=== PATIENT | female | born 1950 | race Caucasian/White ===

== ENCOUNTER 2018-05-21 09:50 | Inpatient (IN) | payer OTHER ==
[~2018-05-21] VITALS: Ht 162.6 cm; Wt 52.2 kg
--- NOTE | 2018-05-21 09:51 | NUR ---
PT BIBA BLS TO ER BED 11
[2018-05-21 09:54] VITALS: BP 132/88
--- NOTE | 2018-05-21 09:55 | NUR ---
67 Y FEMALE BROUGHT IN BY EMS FROM PRIVATE HOME C/O SOB WITH SUPRACLAVICULAR AND INTRACOSTAL RETRACTIONS X 3 DAYS. FATIGUE WITH MINIMAL EXCERTION 91% ROOM AIR. PT STARTED ON 2 L NC. CURRENTLY AT 98%. LUNGS CLEAR BILATERALLY. SWELLING IN BILATERAL LEGS. PALPABLE PEDAL PULSES BILATERL. VSS AT THIS TIME. AA0X4. BED IS DOWN, LOCKED, BED RAIL X 1, ERMD NOTIFIED. HX--BLADDER CA, NEPHROSTOMY TUBE TO COLLECTING BAG RIGHT, APPENDIX REMOVED, R BREAST CYST RX---IBUPROFEN, NORCO, NORVASC
[2018-05-21] MEDS ORDERED: IBUP-2213 PO (10:03)
[2018-05-21] MEDS ORDERED: HYDR-5123 PO (10:03)
[2018-05-21] MEDS ORDERED: AMLO5TAB1 PO (10:03)
--- NOTE | 2018-05-21 10:21 | NUR ---
XRAY AT BEDSIDE
[2018-05-21 10:56] LABS: BASOPHILS # (AUTO) 0.1 K/uL (0.00-0.22); EOSINOPHILS # (AUTO) 0.2 K/uL (0-0.4); EOSINOPHILS % (AUTO) 2.3 % (0.0-4.0); HEMATOCRIT 33.3 % (36-48); HEMOGLOBIN 11.4 g/dL (12.0-16.0); LYMPHOCYTES # (AUTO) 0.5 K/uL (2.5-16.5); LYMPHOCYTES % (AUTO) 5.7 % (20.5-51.1); MEAN CORPUSCULAR HEMOGLOBIN 31 pg (27-31); MEAN CORPUSCULAR HGB CONC 34 g/dL (33-37); MONOCYTES # (AUTO) 0.8 K/uL (0.8-1.0); MONOCYTES % (AUTO) 8.7 % (1.7-9.3); NEUTROPHILS # (AUTO) 7.5 K/uL (1.8-7.7); NEUTROPHILS % (AUTO) 82.3 % (42.2-75.2); PLATELET COUNT (AUTO) 351 K/uL (140-450); RED BLOOD CELL COUNT(AUTO) 3.66 MIL/uL (4.20-5.40); WHITE BLOOD COUNT (AUTO) 9.1 K/uL (4.8-10.8)
--- NOTE | 2018-05-21 10:58 | NUR ---
DR NEGRETE AT BEDSIDE
[2018-05-21 11:06] LABS: ANION GAP 18.7 (8-16); CARBON DIOXIDE 18.4 mmol/L (21-32); CREATININE 2.7 mg/dL (0.6-1.3); POTASSIUM 4.1 mmol/L (3.5-5.1)
[2018-05-21 11:13] LABS: ALBUMIN 2.3 g/dL (3.4-5.0); TOTAL BILIRUBIN 0.4 mg/dL (0.0-1.0)
[2018-05-21] MEDS ORDERED: PIPERACILLIN/TAZOBACTAM 3.375 GM in DEXTROSE 5% 50 ML IV ONE (11:15)
[2018-05-21] MEDS ORDERED: PIPERACILLIN/TAZOBACTAM 3.375 GM VIAL IV ONE (11:45)
--- NOTE | 2018-05-21 12:00 | NUR ---
VSS AT THIS TIME. PT IS AA0X4
[2018-05-21 12:19] LABS: PROTHROMBIN TIME 11.3 secs (10.8-13.4)
[2018-05-21] MEDS ORDERED: HYDROcodone/APAP 7.5/325 MG 1 TAB PO ONE (12:20)
[2018-05-21] MEDS: NACL 0.9% 1,000 ML IV SCH ×2 (12:27→15:31)
[2018-05-21] MEDS ORDERED: ACETAMINOPHEN 325 MG TAB PO PRN (12:30)
[2018-05-21] MEDS ORDERED: MORPHINE SULFATE 2 MG/ML SYR IVP PRN (12:30)
[2018-05-21] MEDS ORDERED: HYDROcodone/APAP 7.5/325 MG 1 TAB PO PRN (12:30)
[2018-05-21] MEDS ORDERED: DOCUSATE SODIUM 100 MG GELCAP PO PRN (12:30)
[2018-05-21] MEDS ORDERED: MEDICATION REC. PHARMACY CONS. 1 EA MISC MC PRN (12:30)
[2018-05-21] MEDS ORDERED: ENOXAPARIN 60 MG/0.6 ML SYR SUBQ ONE (12:40)
[2018-05-21 13:05] LABS: APPEARANCE,URINE CLEAR (CLEAR); BILIRUBIN,URINE NEGATIVE (NEGATIVE); BLOOD, URINE TRACE-I (NEGATIVE); COLOR,URINE YELLOW (YELLOW); LEUKOCYTE ESTERASE ,URINE 1+ (NEGATIVE); NITRITE, URINE POSITIVE (NEGATIVE); UGLUCOSE NEGATIVE (NEGATIVE)
[2018-05-21] MEDS ORDERED: ALBUTEROL SULFATE/IPRATROPIU 3 ML SOL IH PRN (13:05)
[2018-05-21] MEDS ORDERED: ALBUTEROL 0.083% 2.5 MG/3 ML NEBU INH PRN ×2 (13:05)
--- NOTE | 2018-05-21 13:10 | NUR ---
Patient will be admitted to care of [facility]. Admited to TELE. Will go to room 127B. Belongings list completed. Report to CHANDNI RASHID.
[2018-05-21 13:15] VITALS: BP 119/71
--- NOTE | 2018-05-21 13:15 | NUR ---
RECEIVED REPORT FROM EMERGENCY ROOM NURSE. PT IN STABLE CONDITION. RESPIRATIONS EVEN AND UNLABORED. IV INTACT AND PATENT. BED IN LOW POSITION. CALL LIGHT AT BEDSIDE. WILL CONTINUE TO MONITOR.
[2018-05-21] MEDS ORDERED: SODIUM PHOSPHATE 118 ML ENEM RC SCH (15:00)
[2018-05-21] MEDS ORDERED: LACTOBACILLUS RHAMNOSUS GG 1 EACH CAP PO SCH (15:00)
--- NOTE | 2018-05-21 15:09 | NUR ---
WOUND CARE EVALUATION NOTE: REASON FOR EVALUATION: SACRALCOCCYX PRESSURE ULCER WOUND SKIN ASSESSMENT DONE WITH PRIMARY RN ON THIS 67 Y/O FEMALE PT ADMITTED FROM HOME TO [facility] WITH INITIAL DX OF SOB X 4 DAYS. PT ADMITTED WITH UN-STAGEABLE PRESSURE ULCERS. PAST MEDICAL HX INCLUDES BLADDER CA AND COPD. ALL ABOVE INFORMATION OBTAINED FROM ADMISSION H&P. AND PT. PT. IS AAX4. NEPHROSTOMY TUBE IN PLACE FUNCTION WITH DARRELL COLOR URINE OUTPUT OBSERVED IN THE TUBING. SKIN IS WARM AND DRY, BLE NO HAIR GROWTH, NO EDEMA. BILATERAL DORSAL PEDAL PULSES PRESENT AND NORMAL. PLAN OF CARE DISCUSSED WITH PRIMARY RN. INTEGUMENTARY: -CONTACT DERMATITIS TO RIGHT GROIN TO LABIA MAJORA AREA, REDNESS, RASHES WITH DRY CRACKED SKIN, C/O ITCHINESS, NO ODOR, NO BLISTERS -MULTIPLE DRY SCABS TO UPPER BACK AREA, DRY WITH NO ODOR, SKIN INTACT. -PRESSURE ULCER UN-STAGEABLE TO SACRALCOCCYX 3X2CM WITH OVAL SHAPE, WOUND BED IS 100 % SOFT LIGHT BROWN SLOUGH, DRY WITH NO ODOR, ERIKA-WOUND SKIN DENUDED AND SURROUNDING REDNESS INDICATED FURTHER DAMAGE. RECOMMENDATIONS: -APPLY HYDRAGUARD TO UPPER BACK BID AND PRN IF SOILING -CLEANSE SACRALCOCCYX WITH NS. PAT DRY, APPLY SOAKED BETADINE SOLUTION 2X2 TO SACRALCOCCYX AND Z GUARD TO ERIKA WOUND AND COVER WITH ISLAND DRESSING QD AND PRN IF SOILING -CLEANSE RIGHT GROIN TO LABIA MAJORA AREA WITH MILD SOAP AND WATER, PAT DRY, APPLY NYSTATIN CREAM BIDWC AND PRN IF SOLING. -OFFLOAD BILATERAL HEELS BY PLACING PILLOWS UNDER CALVES UNLESS OTHERWISE CONTRAINDICATED -PRESSURE REDISTRIBUTION SURFACE THERAPY -TURN AND REPOSITION Q2H, OFFLOAD SACRALCOCCYX BY TURNING RIGHT AND LEFT -CONTINUE TO FOLLOW RD RECOMMENDATIONS ALL ABOVE RECOMMENDATIONS DISCUSSED WITH PRIMARY RN WILL FOLLOW UP PT Q7-10 DAYS. PLEASE CONTACT WOUND CARE NURSE FOR ANY QUESTION AND CHANGE OF WOUND CONDITION.
--- NOTE | 2018-05-21 15:56 | NUR ---
RETRIEVED SPRITE AND PILLOW PER PT REQUEST. PT IN STABLE CONDITION. BED IN LOW POSITION. BED ALARM ON. CALL LIGHT AT BEDSIDE. WILL CONTINUE TO MONITOR.
[2018-05-21 16:21] LABS: AMYLASE 130 U/L (25-115)
[2018-05-21 16:34] LABS: LIPASE 1992 U/L (73-393)
[2018-05-21] MEDS: HYDROcodone/APAP 7.5/325 MG 1 TAB PO PRN ×2 (18:01→23:48)
--- NOTE | 2018-05-21 18:04 | NUR ---
* ST NOTE * Pt seen at bedside. Pt alert, cooperative and engaged throughout session, reporting no c/o pain at this time. Pt vomiting/spitting up bile/green, mucous like secretions intermittently throughout session, w/nsg aware. Bedside dysphagia and oral mechanism exams completed. See evaluation report for further details. Pt tolerating 2/2 alternating PO trials of regular solid saltine crackers as well as 4/4 alternating PO trials of thin liquid Sprite via the can/cup, all w/o s/s of aspiration or choking. Pt also reporting she does not have difficulty masticating or swallowing at this time. D/t pt's frequent episodes of spitting up/vomiting, pt refusing any further therapeutic feeding trials at this time as well as refusing regular solid food. Pt reporting at home, she used to eat pudding, yogurt, apple sauce, scrambled eggs, etc. It is thus recommended pt's PO diet consistency be modified to mechanical soft-ground textures w/thin liquids for all meals, w/aspiration precautions in place. Pt and caregiver/Nsg Sapna education completed re: aspiration precautions and safe swallow compensatory strategies pt and caregivers/nsg could utilize to aid pt w/swallow function, w/pt and nsg agreeable. No further ST follow up recommended at this time. Pt and caregiver/Nsg Sapna education completed re: results of evaluation; benefits of abiding by aspiration precautions and recommended PO diet consistency; and prognosis for improvement; with pt and caregiver/Nsg Sapna verbalizing understanding and agreement w/clinician's recommendations. Recommend: - PO DIET CONSISTENCY OF MECHANICAL SOFT-GROUND TEXTURES W/THIN LIQUIDS for all meals - WHOLE PILL PO MEDICATION ADMINISTRATION OR CRUSHED IN PUREE OR GROUND TEXTURES - MAINTAIN ASPIRATION PRECAUTIONS DURING PT'S PO INTAKE - Pt requires cueing/setup assistance for self-feeding - CUE/REMIND/ASSIST PT PRIOR TO PO INTAKE TO SIT UP AT 80-90 DEGREE ANGLE DURING PO INTAKE; EAT/DRINK SLOWLY; ALTERNATE BTWN SOLIDS & LIQUIDS; AND TO TAKE SMALL BITES/SIPS - Pt may benefit from an EGD to r/o GERD, esophageal dysphagia, etc. - Pt's PO diet consistency may be upgraded to regular solids w/thin liquids as tolerated No further ST follow up recommended to further address swallow function. NOMS Level 3 Time In/Out: 17:15 - 17:45
--- NOTE | 2018-05-21 19:30 | NUR ---
RECEIVED BEDSIDE REPORT FROM DAY SHIFT NURSE CHANDNI RN, PT STABLE, NO DISTRESS NOTED, IV TO L HAND 24G, PATENT INTACT, INFUSING NS @ 126ML/HR, INFUSING WELL, PT ON 2LPM O2 VIA NC, NO SOB NOTED, NEPHROSTOMY TUBE INTACT DRAINING YELLOW URINE, WOUND DRESSING INTACT TO THE SACRAL AREA, INITIAL ASSESSMENT DONE, CALL LIGHT WITHIN REACH, WILL CONTINUE TO MONITOR.
--- NOTE | 2018-05-21 19:51 | NUR ---
GAVE REPORT TO ELEMENTARY ASSISTANT TEACHER NURSE FOR CONTINUITY OF CARE. PT IN STABLE CONDITION.
[2018-05-21] MEDS: BUDESONIDE 0.5 MG/2 ML NEBU INH SCH (19:55)
[2018-05-21 20:00] VITALS: BP 114/64
[2018-05-21] MEDS: PIPER/TAZO 2.25GM/D5W PREMIX 50 ML IV SCH (20:32)
[2018-05-21] MEDS: NYSTATIN/TRIAMCINOLONE CRM 15 GM TUBE TP SCH (20:33)
--- NOTE | 2018-05-21 20:33 | NUR ---
DUE MEDICATION ADMINISTERED, PT TOLERATED WELL, NO DISTRESS NOTED, CALL LIGHT WITHIN REACH, WILL CONTINUE TO MONITOR.
--- NOTE | 2018-05-21 23:48 | NUR ---
PT C/O PAIN, PAIN MEDICATION PER MD ORDER ADMINISTERED, PT TOLERATED WELL, NO DISTRESS NOTED, CALL LIGHT WITHIN REACH, WILL CONTINUE TO MONITOR.
[2018-05-21] MEDS: ONDANSETRON 4 MG/2 ML VIAL IM/IVP PRN (23:54)
--- NOTE | 2018-05-21 23:54 | NUR ---
PT NAUSEATED, VOMITED 120ML, NAUSEA MEDICATION ADMINISTERED, PT TOLERATED WELL, NO DISTRESS NOTED, CALL LIGHT WITHIN REACH, WILL CONTINUE TO MONITOR.
[2018-05-22] VITALS (7 sets, daily range): BP systolic 96–119; BP diastolic 60–76
[2018-05-22] MEDS: NACL 0.9% 1,000 ML IV SCH (00:02)
[2018-05-22] MEDS: Z-GUARD PASTE TP SCH ×2 (00:28→13:00)
[2018-05-22] MEDS: HYDRAGUARD CREAM TP SCH ×2 (00:28→13:27)
--- NOTE | 2018-05-22 03:36 | NUR ---
CHECKED ON PT, PT SLEEPING, NO DISTRESS NOTED, CALL LIGHT WITHIN REACH, WILL CONTINUE TO MONITOR.
[2018-05-22] MEDS: PIPER/TAZO 2.25GM/D5W PREMIX 50 ML IV SCH ×3 (05:03→21:30)
[2018-05-22] MEDS: HYDROcodone/APAP 7.5/325 MG 1 TAB PO PRN ×3 (05:51→20:55)
--- NOTE | 2018-05-22 05:51 | NUR ---
PT C/O PAIN, PAIN MEDICATION ADMINISTERED, PT TOLERATED WELL, NO DISTRESS NOTED, CALL LIGHT WITHIN REACH, WILL CONTINUE TO MONITOR.
--- NOTE | 2018-05-22 07:10 | NUR ---
IV TO L HAND 24G INFILTRATED, NEW IV INSERTED TO L FA 24G, PT TOLERATED WELL, NO DISTRESS NOTED, CALL LIGHT WITHIN REACH, WILL CONTINUE TO MONITOR.
--- NOTE | 2018-05-22 07:22 | NUR ---
PT LEFT UNIT FOR NEPHROSTOMY TUBE REPLACEMENT, PT IN STABLE CONDITION.
[2018-05-22] MEDS: BUDESONIDE 0.5 MG/2 ML NEBU INH SCH ×3 (07:30→19:44)
--- NOTE | 2018-05-22 07:35 | NUR ---
ENDORSED PT TO DAY SHIFT NURSE, NO DISTRESS NOTED, CALL LIGHT WITHIN REACH.
[2018-05-22 07:42] LABS: ANION GAP 17.6 (8-16); CARBON DIOXIDE 18.7 mmol/L (21-32); CREATININE 2.5 mg/dL (0.6-1.3); POTASSIUM 4.3 mmol/L (3.5-5.1)
[2018-05-22] MEDS ORDERED: LIDOCAINE/EPI MPF 1%1:200000 30 ML VIAL INJ ONE (07:58)
[2018-05-22] MEDS ORDERED: BUPIVACAINE-MPF 0.25% 30 ML VIAL INJ ONE (07:58)
[2018-05-22 08:02] LABS: MAGNESIUM 1.9 mg/dL (1.8-2.4); PHOSPHORUS 3.3 mg/dL (2.5-4.9)
[2018-05-22] MEDS ORDERED: fentaNYL 0.05 MG/ML VIAL ONE (08:04)
[2018-05-22] MEDS ORDERED: MIDAZOLAM 2 MG/2 ML VIAL ONE (08:04)
[2018-05-22 08:42] LABS: BASOPHILS # (AUTO) 0.1 K/uL (0.00-0.22); BASOPHILS % (AUTO) 1.3 % (0.0-2.0); EOSINOPHILS # (AUTO) 0.3 K/uL (0-0.4); EOSINOPHILS % (AUTO) 3.8 % (0.0-4.0); HEMATOCRIT 27.1 % (36-48); HEMOGLOBIN 9.4 g/dL (12.0-16.0); LYMPHOCYTES # (AUTO) 0.4 K/uL (2.5-16.5); LYMPHOCYTES % (AUTO) 6.3 % (20.5-51.1); MEAN CORPUSCULAR HEMOGLOBIN 31 pg (27-31); MEAN CORPUSCULAR HGB CONC 35 g/dL (33-37); MEAN CORPUSCULAR VOLUME 90.8 fL (80-94); MONOCYTES # (AUTO) 0.6 K/uL (0.8-1.0); MONOCYTES % (AUTO) 9.3 % (1.7-9.3); NEUTROPHILS # (AUTO) 5.4 K/uL (1.8-7.7); NEUTROPHILS % (AUTO) 79.3 % (42.2-75.2); PLATELET COUNT (AUTO) 256 K/uL (140-450); RED BLOOD CELL COUNT(AUTO) 2.98 MIL/uL (4.20-5.40); RED CELL DISTRIBUTION WIDTH 16.7 % (11.6-13.7); WHITE BLOOD COUNT (AUTO) 6.8 K/uL (4.8-10.8)
[2018-05-22] MEDS ORDERED: LACTOBACILLUS RHAMNOSUS GG 1 EACH CAP PO SCH (09:00)
[2018-05-22] MEDS ORDERED: NICOTINE TRANSD SYS 14 MG/24 HR PATCH TD SCH (09:00)
[2018-05-22] MEDS ORDERED: amLODIPine 5 MG TAB PO SCH (09:00)
[2018-05-22 09:06] LABS: HEPATITIS A ANTIBODY IGM Negative (Negative); HEPATITIS B CORE AB TOTAL Negative (Negative); HEPATITIS B SURFACE ANTIBODY Reactive (.); HEPATITIS B SURFACE ANTIGEN Negative (Negative)
--- NOTE | 2018-05-22 09:57 | NUR ---
PATIENT HAS BEEN SCREENED AND CATEGORIZED MODERATE NUTRITION RISK. PATIENT WILL BE SEEN WITHIN 3-5 DAYS OF ADMISSION. 05/24/18[address]
--- NOTE | 2018-05-22 10:00 | NUR ---
RECEIVED PATIENT FROM [facility] FOR CONTINUITY OF CARE. PT HAD LEFT NEPHROSTOMY TUBE PLACEMENT, SITE COVERED WITH TRANSPARENT DRESSING CLEAN AND DRY . PATIENT AWAKE A/OX4 NO S/S OF RESP DISTRESS NOTED,O2 2L/NC. NO COMPLAIN OF PAIN. PLAN OF CARE DISCUSSED WITH THE PATIENT VITALS STABLE WILL CONTINUE TO MONITOR.
--- NOTE | 2018-05-22 10:30 | NUR ---
DUE MEDS GIVEN TOLERATED WELL VITALS STABLE .
[2018-05-22] MEDS: NYSTATIN/TRIAMCINOLONE CRM 15 GM TUBE TP SCH ×2 (10:44→21:33)
--- NOTE | 2018-05-22 12:28 | NUR ---
RECEIVED A CALL FROM KARI FROM [facility], ASKING IF THE PATIENT IS STABLE FOR TRANSFER TO CONTRACTED FACILITY, [facility]. I INFORMED DR. MICHELE WHO WILL CONTACT DR. PETERSON
--- NOTE | 2018-05-22 12:52 | NUR ---
RECEIVED ORDER THAT PATIENT IS STABLE FOR TRANSFER TO CONTRACTED FACILITY. CALLED KARI AT [facility] TO INFORM HER. FAXED ORDER TO HER A [phone]. I INFORMED HER THAT PATIENT IS ON TELEMETRY HERE. I GAVE KARI THE CALL PHONE NUMBER FOR DR. PETERSON [phone].
[2018-05-22] MEDS ORDERED: GAUZE TP SCH (13:00)
--- NOTE | 2018-05-22 13:00 | NUR ---
COMPLAIN OF PAIN MEDICATED WITH NORCO 7.5 MG PO VITALS STABLE AT THIS TIME
--- NOTE | 2018-05-22 13:43 | NUR ---
05/22/18 RD INITIAL ASSESSMENT COMPLETED PLEASE REFER TO NUTRITION ASSESSMENT UNDER CARE ACTIVITY FOR ESTIMATED NUTRITIONAL NEEDS. 1. CONTINUE NPO MEDICALLY NECESSARY 2. RECOMMEND MECHANICAL SOFT DIET WHEN PT IS READY TO RECEIVE NUTRITION 3. RECOMMEND ENSURE BID 4. RECOMMEND MVI 5. RD TO FOLLOW-UP 2-3 DAYS, HIGH RISK VALERIE REYNOLDS RD
--- NOTE | 2018-05-22 14:00 | NUR ---
P.T. NOTES PATIENT WAS SEEN AT HER BEDSIDE RECEIVING SOME BREATHING TREATMENTS BUT ABLE TO COMMUNICATE. SHE DECLINED TO PARTICIPATE WITH P.T. SERVICES AT THIS TIME STATING "I DON'T WANT TO MOVE RIGHT NOW!" PLAN:WE'LL FOLLOW UP AGAIN TOMORROW IF SHE REMAINS IN THIS HOSPITAL AND TO CONTINUE WHEN ABLE PER THE RECOMMENDED TREATMENT P.O.C.
--- NOTE | 2018-05-22 14:40 | NUR ---
SPOKE WITH KARI FROM [facility]. SHE SAID THAT TARA FROM [facility] [phone], IS LOOKING FOR A BED FOR THIS PATIENT. I GAVE KAIR TO PHONE NUMBER TO THE FLOOR IF A BED BECOMES AVAILABLE. I INFORMED RACH RASHIDPLANOGRAPH OPERATOR NURSE OF POS TRANSFER TO [facility] TODAY.
--- NOTE | 2018-05-22 15:30 | NUR ---
CALLED TARA AT [facility], . SHE DOES NOT HAVE A BED YET. I GAVE HER THE PHONE NUMBER TO THE FLOOR TO CALL WHEN THEY GET A BED.
--- NOTE | 2018-05-22 16:00 | NUR ---
DR STAHL VISITED PATIENT , NO NEW ORDER .
--- NOTE | 2018-05-22 18:39 | NUR ---
TARA FROM [facility] CALLED AND GAVE BED [phone] REPORT .
--- NOTE | 2018-05-22 18:44 | NUR ---
SAFETY MAINTAINED CALL LIGHT IN REACH , NO DISTRESS NOTED STABLE CONDITION AT THIS TIME.
[2018-05-22] MEDS ORDERED: ALBUTEROL SULFATE/IPRATROPIU 3 ML SOL IH SCH (19:00)
--- NOTE | 2018-05-22 19:25 | NUR ---
ENDORSE THE CARE TO MOSES RASHID
--- NOTE | 2018-05-22 19:26 | NUR ---
RECEIVED BEDSIDE REPORT FROM AM NURSE BELINDA RN, PT STABLE, NO DISTRESS NOTED, IV TO R FA 22G PATENT INTACT, INFUSING NS @ 40ML/HR, PT ON 2LPM O2 VIA NC NO SOB, V/S TAKEN, WNL, DRESSINGS INTACT, NEPHROSTOMY TUBE IN PLACE DRAINING YELLOW URINE, INITIAL ASSESSMENT DONE, ALL SAFETY PRECAUTION MET, CALL LIGHT WITHIN REACH, WILL CONTINUE TO MONITOR.
[2018-05-22] MEDS ORDERED: NYSTRC TP (19:46)
[2018-05-22] MEDS ORDERED: Hydraguard TP (19:46)
[2018-05-22] MEDS ORDERED: LACT10CA PO (19:46)
[2018-05-22] MEDS ORDERED: ZOS2.25PM IV (19:46)
--- NOTE | 2018-05-22 20:55 | NUR ---
PT C/O PAIN, PAIN MEDICATION ORDERED GIVEN, PT TOLERATED WELL, NO DISTRESS NOTED, CALL LIGHT WITHIN REACH, WILL CONTINUE TO MONITOR.
--- NOTE | 2018-05-22 21:33 | NUR ---
DUE MEDICATION ADMINISTERED, PT TOLERATED WELL, DISCHARGE WOUND PICTURES TAKEN. PROVIDED WOUND CARE, CHANGED DRESSINGS. PT RESTING, NO DISTRESS NOTED, CALL LIGHT WITHIN REACH, WILL CONTINUE TO MONITOR.
--- NOTE | 2018-05-22 22:10 | NUR ---
CALLED [facility] TO GIVE REPORT TO GAY BARNETT AT [facility]. Addendum: 05/23/18 at 0038 by Joyce Villalobos RN AT [phone]
--- NOTE | 2018-05-22 22:45 | NUR ---
ALL DISCHARGE PAPER SIGN, BELONGING LIST SIGNED, PT STATED UNDERSTANDING THAT SHE IS GOING TO BE TRANSFERRED TO [facility]. PT RESTING, NO DISTRESS NOTED, CALL LIGHT WITHIN REACH, WILL CONTINUE TO MONITOR.N
[2018-05-22] MEDS: ONDANSETRON 4 MG/2 ML VIAL IM/IVP PRN (23:02)
--- NOTE | 2018-05-22 23:02 | NUR ---
PT FEELING NAUSEA, GAVE ZOFRAN PER MD ORDER BEFORE PT LEFT. PT IN STABLE CONDITION, NO DISTRESS NOTED.
--- NOTE | 2018-05-22 23:17 | NUR ---
PT LEFT UNIT IN STABLE CONDITION VIA GURNEY WITH [facility], TELE BOX TAKEN OUT, ALL BELONGING WITH PT. IV TO R FA 22G INTACT, NEPHROSTOMY TUBE INTACT, DRESSINGS CLEAN DRY AND IN PLACE. O2 VIA NC 2LPM.
== END 2018-05-22 23:17 | disposition short-term general hospital (02) | DRG 871 ==
LOC: MED 09:50 → MMU 13:02
PROVIDERS: ADMIT General Practice; ATTEND General Practice
PROC: 0T9030Z Drainage of Right Kidney with Drainage Device, Percutaneous Approach (ICD-10-PCS; principal; 2018-05-22)
PROC: 0TP5X0Z Removal of Drainage Device from Kidney, External Approach (ICD-10-PCS; 2018-05-22)
PROC: BT111ZZ Fluoroscopy of Right Kidney using Low Osmolar Contrast (ICD-10-PCS; 2018-05-22)
DX: A41.9 Sepsis, unspecified organism (principal); N17.0 Acute kidney failure with tubular necrosis; J96.21 Acute and chronic respiratory failure with hypoxia; J18.1 Lobar pneumonia, unspecified organism; E87.1 Hypo-osmolality and hyponatremia; N39.0 Urinary tract infection, site not specified; C78.00 Secondary malignant neoplasm of unspecified lung; E87.2 Acidosis; J44.0 Chronic obstructive pulmonary disease with (acute) lower respiratory infection; J91.8 Pleural effusion in other conditions classified elsewhere; T83.022A Displacement of nephrostomy catheter, initial encounter; Y83.8 Other surgical procedures as the cause of abnormal reaction of the patient, or of later complication, without mention of misadventure at the time of the procedure; R65.20 Severe sepsis without septic shock; C67.9 Malignant neoplasm of bladder, unspecified; A63.0 Anogenital (venereal) warts; L89.152 Pressure ulcer of sacral region, stage 2; R79.89 Other specified abnormal findings of blood chemistry; D63.8 Anemia in other chronic diseases classified elsewhere; I12.9 Hypertensive chronic kidney disease with stage 1 through stage 4 chronic kidney disease, or unspecified chronic kidney disease; R21 Rash and other nonspecific skin eruption; F17.290 Nicotine dependence, other tobacco product, uncomplicated; N18.9 Chronic kidney disease, unspecified; Z85.51 Personal history of malignant neoplasm of bladder; Z88.8 Allergy status to other drugs, medicaments and biological substances; Z79.899 Other long term (current) drug therapy; Z90.49 Acquired absence of other specified parts of digestive tract; Z83.3 Family history of diabetes mellitus; Z81.1 Family history of alcohol abuse and dependence; Z80.7 Family history of other malignant neoplasms of lymphoid, hematopoietic and related tissues; Y92.89 Other specified places as the place of occurrence of the external cause
CPT/HCPCS: 36415; 36600; 50432; 71045; 71250; 76604; 76705; 76770; 80048; 80053; 81001; 82150; 82306; 82607; 82746; 82803; 83605; 83690; 83735; 83880; 84100; 84443; 84484; 85025; 85610; 85730; 86704; 86706; 86708; 86709; 86803; 87040; 87081; 87086; 87186; 87340; 92610; 93005; 94640; 96365; 97110; 97161-GP; 97530; 99285; C1729; J2001; J2250; J2405; J2543; J3010; J3490; J7030; J7613; J7620; J7626; Q0092; Q9967